=== PATIENT | female | born 1985 | race Caucasian/White ===

== ENCOUNTER → 2019-10-24 | Outpatient (CLI) | payer OTHER | END | disposition home or self-care (01) | LOC: STAR 11:10 | PROVIDERS: ATTEND Obstetrics & Gynecology | DX: Z01.812 Encounter for preprocedural laboratory examination (principal); Z20.828 Contact with and (suspected) exposure to other viral communicable diseases | CPT/HCPCS: 36415; 87635 ==

== ENCOUNTER 2019-10-25 14:49 | Inpatient (IN) | payer OTHER ==
[~2019-10-25] VITALS: Ht 167.6 cm; Wt 118.6 kg
[2019-10-31] MEDS ORDERED: OXYTOCIN 30U/ 0.9% NaCL 500ML 500 ML IV ONE (04:55)
[2019-10-31] MEDS ORDERED: OXYTOCIN 30U/ 0.9% NaCL 500ML 500 ML IV PRN (04:55)
[2019-10-31] MEDS: D5%-LACTATED RINGERS 1,000 ML IV SCH ×2 (04:55→17:10)
[2019-10-31] MEDS ORDERED: FENTANYL PF 100 MCG/2ML IVPush PRN (05:00)
[2019-10-31] MEDS ORDERED: CALCIUM CARBONATE 500 MG TAB.CHEW PO PRN (05:00)
[2019-10-31] MEDS ORDERED: ONDANSETRON 2MG/ML, 2ML IVPush PRN ×2 (05:00→18:30)
[2019-10-31] MEDS ORDERED: FENTANYL PF 100 MCG/2ML IV PRN ×2 (05:00→18:30)
[2019-10-31] MEDS ORDERED: TERBUTALINE 1 MG/ML, 1ML SQ PRN (05:00)
[2019-10-31] MEDS ORDERED: TERBUTALINE 1 MG/ML, 1ML IVPush PRN (05:00)
[2019-10-31] MEDS ORDERED: OXYTOCIN 30U/ 0.9% NaCL 500ML 500 ML ONE (05:09)
[2019-10-31] MEDS ORDERED: NEWBORN KIT ONE (05:09)
[2019-10-31] MEDS: LACTATED RINGERS 1,000 ML IV SCH ×4 (05:56→20:00)
[2019-10-31 05:58] LABS: BASOPHILS # (AUTO) 0.03 x10^3/uL (0-0.1); BASOPHILS % (AUTO) 0 % (0-1); EOSINOPHILS # (AUTO) 0.09 x10^3/uL (0-0.4); EOSINOPHILS % (AUTO) 1 % (1-7); LYMPHOCYTES # (AUTO) 1.74 x10^3/uL (1-3.4); LYMPHOCYTES % (AUTO) 21 % (22-44); MD NO; MEAN CORPUSCULAR HEMOGLOBIN 28.2 pg (27.0-34.8); MEAN CORPUSCULAR HGB CONC 32.4 g/dL (32.4-35.8); MEAN CORPUSCULAR VOLUME 86.8 fL (80-100); MEAN PLATELET VOLUME 8.7 fL (7.4-10.4); MONOCYTES # (AUTO) 0.75 x10^3/uL (0.2-0.8); MONOCYTES % (AUTO) 9 % (2-9); NEUTROPHILS % (AUTO) 69 % (42-75); PLATELET COUNT 169 x10^3/uL (130-400); RED CELL DISTRIBUTION WIDTH 15.6 % (9.6-15.2)
[2019-10-31] MEDS ORDERED: PLEASE ENTER HEIGHT AND WEIGHT MC SCH (06:00)
[2019-10-31 06:32] VITALS: BP 133/77
[2019-10-31] MEDS ORDERED: METOCLOPRAMIDE 5 MG/ML, 2ML ONE (18:13)
[2019-10-31] MEDS ORDERED: ONDANSETRON 2MG/ML, 2ML ONE (18:26)
[2019-10-31] MEDS ORDERED: EPHEDRINE 50 MG/ML, 1ML ONE (18:26)
[2019-10-31] MEDS ORDERED: OXYTOCIN 10 UNITS/ML, 1ML ONE (18:26)
[2019-10-31] MEDS ORDERED: DEXAMETHASONE 4 MG/ML, 1ML ONE (18:26)
[2019-10-31] MEDS ORDERED: CEFAZOLIN 1,000 MG ONE (18:26)
[2019-10-31] MEDS ORDERED: KETOROLAC 30 MG/1 ML ONE (18:26)
[2019-10-31] MEDS ORDERED: PHENYLEPHRINE 10 MG/ML ONE (18:26)
[2019-10-31] MEDS ORDERED: FENTANYL PF 100 MCG/2ML ONE (18:27)
[2019-10-31] MEDS ORDERED: morphine SULFATE 10 MG/ML, 1ML IV PRN (18:30)
[2019-10-31] MEDS ORDERED: EPHEDRINE 50 MG/ML, 1ML IVPush PRN (18:30)
[2019-10-31] MEDS ORDERED: HYDROcodone/APAP 7.5-325MG/15ML UDC PO PRN (18:30)
[2019-10-31] MEDS ORDERED: LABETALOL 5MG/ML, 20ML IV PRN (18:30)
[2019-10-31] MEDS ORDERED: METOCLOPRAMIDE 5 MG/ML, 2ML IVPush ONE (18:30)
[2019-10-31] MEDS ORDERED: ALBUTEROL/IPRATROPIUM 2.5MG/0.5MG, 3 ML NPPB PRN (18:30)
[2019-10-31] MEDS ORDERED: METOPROLOL 1 MG/ML, 5ML IV PRN (18:30)
[2019-10-31] MEDS ORDERED: MIDAZOLAM 1 MG/ML, 2ML IV PRN (18:30)
[2019-10-31] MEDS ORDERED: HYDROmorphone 2 MG/ML, 1ML IVPush PRN (18:30)
[2019-10-31] MEDS ORDERED: SODIUM CITRATE/CITRIC ACID 30 ML UDC PO ONE (18:30)
[2019-10-31] MEDS ORDERED: AZITHROMYCIN 500 MG in SODIUM CHLORIDE 0.9% 250 ML IV ONE (18:30)
[2019-10-31] MEDS ORDERED: PROMETHAZINE 25 MG/ML, 1ML IV PRN (18:30)
[2019-10-31] MEDS ORDERED: OXYcodone 5 MG/5 ML ORAL.SOL UDC PO PRN (18:30)
[2019-10-31] MEDS ORDERED: hydrALAzine 20 MG/ML, 1ML IV PRN (18:30)
[2019-10-31] MEDS ORDERED: HYDROmorphone 2 MG/ML, 1ML ONE (19:20)
[2019-10-31] MEDS ORDERED: ACETAMINOPHEN 325 MG TABLET PO PRN ×2 (19:30)
[2019-10-31] MEDS ORDERED: MEPERIDINE/PF 100 MG/ML IVPush PRN (19:30)
[2019-10-31] MEDS ORDERED: OXYcodone/APAP 5/325MG TABLET PO PRN (19:30)
[2019-10-31] MEDS ORDERED: SIMETHICONE 80 MG CHEW TAB PO PRN (19:30)
[2019-10-31] MEDS ORDERED: ONDANSETRON 2MG/ML, 2ML IV PRN (19:30)
[2019-10-31] MEDS ORDERED: morphine SULFATE 10 MG/ML, 1ML IVPush PRN (19:30)
[2019-10-31] MEDS ORDERED: MORPHINE SULFATE 4 MG/ML, 1ML IVPush PRN (19:30)
[2019-10-31] MEDS: KETOROLAC 30 MG/1 ML IV SCH (19:30)
[2019-10-31] MEDS ORDERED: IBUPROFEN 600 MG TABLET PO PRN (19:30)
[2019-10-31] MEDS ORDERED: METHYLERGONOVINE 0.2 MG/ML IM PRN (19:30)
[2019-10-31] MEDS ORDERED: MISOPROSTOL 200 MCG TABLET PR PRN (19:30)
[2019-10-31] MEDS: OXYTOCIN 30U/ 0.9% NaCL 500ML 500 ML IV SCH (20:00)
[2019-10-31 21:00] VITALS: BP 129/67
[2019-11-01 01:10] VITALS: BP 122/76
[2019-11-01] MEDS: KETOROLAC 30 MG/1 ML IV SCH ×4 (01:30→19:56)
[2019-11-01] MEDS: LACTATED RINGERS 1,000 ML IV SCH ×5 (03:30→19:30)
[2019-11-01 03:39] LABS: MEAN CORPUSCULAR HEMOGLOBIN 28.4 pg (27.0-34.8); MEAN CORPUSCULAR HGB CONC 32.6 g/dL (32.4-35.8); MEAN CORPUSCULAR VOLUME 87.1 fL (80-100); MEAN PLATELET VOLUME 8.6 fL (7.4-10.4); PLATELET COUNT 160 x10^3/uL (130-400); RED CELL DISTRIBUTION WIDTH 15.2 % (9.6-15.2)
[2019-11-01 04:10] VITALS: BP 112/69
[2019-11-01] MEDS: OXYcodone/APAP 5/325MG TABLET PO PRN (04:25)
[2019-11-01] MEDS: OXYTOCIN 30U/ 0.9% NaCL 500ML 500 ML IV SCH ×2 (05:30→15:30)
[2019-11-01 05:54] LABS: MD YES
[2019-11-01 05:55] LABS: <PLATELET ESTIMATE> ADEQUATE; <PLT MORPHOLOGY> NORMAL PLT MORPH; <RBC MORPHOLOGY> NORMAL; BAND#(MANUAL) 0.41 x10^3/uL; BANDS%(MANUAL) 2 % (0-7); LYMPH#(MANUAL) 1.22 x10^3/uL (1-3.4); LYMPHS% (MANUAL) 6 % (22-44); METAMYELOCYTES% (MANUAL) 1 % (0-1); MONOS#(MANUAL) 0.82 x10^3/uL (0.3-2.7); MONOS% (MANUAL) 4 % (2-9); SEG#(MANUAL) 17.75 x10^3/uL (1.8-6.8); SEGS% (MANUAL) 87 % (42-75)
[2019-11-01 06:55] VITALS: BP 109/68
[2019-11-01] MEDS: DOCUSATE 100 MG CAPSULE PO PRN ×2 (07:41→19:56)
[2019-11-01] MEDS: PRENATAL VIT/IRON/FA 1 EACH TABLET PO SCH (07:41)
[2019-11-01 12:40] VITALS: BP 114/72
[2019-11-01 20:00] VITALS: BP 118/75
[2019-11-02] MEDS: LACTATED RINGERS 1,000 ML IV SCH ×2 (01:04→01:05)
[2019-11-02] MEDS: OXYTOCIN 30U/ 0.9% NaCL 500ML 500 ML IV SCH (01:04)
[2019-11-02] MEDS: KETOROLAC 30 MG/1 ML IV SCH ×3 (01:28→13:32)
[2019-11-02] MEDS: DOCUSATE 100 MG CAPSULE PO PRN (07:47)
[2019-11-02 07:50] VITALS: BP 129/83
[2019-11-02] MEDS: PRENATAL VIT/IRON/FA 1 EACH TABLET PO SCH (09:00)
[2019-11-02] MEDS: OXYcodone/APAP 5/325MG TABLET PO PRN (12:26)
[2019-11-02] MEDS ORDERED: IBUP-1222 PO (13:07)
[2019-11-02] MEDS ORDERED: OXYC-302 PO (13:08)
== END 2019-11-02 15:37 | disposition home or self-care (01) | DRG 787 ==
LOC: LDIP 10-31 04:54 → 2NW 10-31 20:42
PROVIDERS: ADMIT Obstetrics & Gynecology; ATTEND Obstetrics & Gynecology
PROC: 10D00Z1 Extraction of Products of Conception, Low, Open Approach (ICD-10-PCS; principal; 2019-10-31)
DX: O48.0 Post-term pregnancy (principal); O99.354 Diseases of the nervous system complicating childbirth; O77.0 Labor and delivery complicated by meconium in amniotic fluid; Z37.0 Single live birth; Z3A.40 40 weeks gestation of pregnancy; O32.2XX0 Maternal care for transverse and oblique lie, not applicable or unspecified; G43.909 Migraine, unspecified, not intractable, without status migrainosus
CPT/HCPCS: 36415; J7121; 85025; 86592; 86850; 86900; G0378; J0456; J0690; J1100; J1170; J1885; J2405; J3010; J2370; J2590; J2765; J7050; J7120